=== PATIENT | female | born 1990 | race Caucasian/White ===

== ENCOUNTER 2022-12-23 12:30 | Outpatient (AMB) | payer OTHER, SELFPAY ==
[2022-12-23 14:32] VITALS: BP 100/62; PULSE 64; TEMP 36.4; O2SAT 99; BMI 32.6
--- NOTE | 2022-12-23 14:32 | AM.OFFWIN_ITS ---
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 Pt states since 12/19/22 she has felt dizzy. 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 She states that she had some mild dizziness/vertigo for the last few days or so. No fever or chills, nausea vomiting or diarrhea, headache or ea r pain, ear discharge or difficulty hearing, difficulty swallowing, anorexia, loss of sense of taste or smell, chest pain or shortness of breath, myalgias, or other significant associated symptoms. Review of Systems Const All systems reviewed & are unremarkable except as noted in HPI and below Physical Exam Vital Signs: Last Vital Signs Temp 97.6 F 12/23/22 14:32 Pulse 64 12/23/22 14:32 BP 100/62 12/23/22 14:32 Pulse Ox 99 12/23/22 14:32 Oxygen Delivery Method Room Air 12/23/22 14:32 BMI result Body Mass Index 32.6 Const General: cooperative, healthy appearing, comfortable, no acute distress, alert, awake, Physically active and well groomed; No anxious, diaphoretic, intoxicated appearing, poor hygiene or tired appearing Nutritional Appearance: average body habitus Limitations: no limitations HEENT Head: Yes normal to inspection, Yes normocephalic and Yes atraumatic Ears: hearing grossly normal bilaterally, external ears normal, EAC's normal and TM abnormal (Bilateral) bulging, dull, erythematous, with fluid behind the TM and with loss of landmarks; not obstructed by cerumen and not perforated General nose exam: Normal external nose present, No nasal discharge present, Abnormal mucous membranes and turbinates present, Abnormal nasal septum present and Nasal discharge present Face and sinus: Yes normal facial exam, Yes sinuses nontender and Yes face symmetric Mouth: Normal oral and palatal mucosa present, lip normal and tongue normal Throat: Yes abnormal tonsil (mildly erythematous bilaterally), No peritonsillar mass, No postnasal drainage, No uvular edema and No cobblestoning Eyes General: appearance normal, both eyes and all related structures Neck Neck: Yes normal visual inspection, Yes supple and Yes lymphadenopathy (Mild bilateral submandibular) Resp Effort & Inspection: normal respiratory effort, able to speak in complete sentences, no audible wheezes, no cough, no grunting, not labored, no nasal flaring, no retractions and symmetric chest movement Auscultation: clear to auscultation bilaterally, no crackles, no rales, no rhonchi, no wheezes, lung sounds not diminished and No rub present Cardio Palpation: normal PMI Rate: regular rate Rhythm: regular rhythm Heart sounds: S1 normal heart sound present and S2 normal heart sound present Skin Other: Good color, warm and dry Psych Appearance: grossly normal Mental Status: mental status grossly normal Speech and movement: Normal speech and movement present Affect: normal affect Attitude: cooperative Thought process: Normal thought process present Insight: Good insight present (Psych) Judgement: Good judgement present (Psych) Assessment & Plan Assessment & Plan (1) Otitis media: Code(s): H66.90 - Otitis media, unspecified, unspecified ear Plan Patient with URI, pending respiratory panel to rule out flu COVID and RSV. She has also developed otitis media, right greater than left. She might also have labyrinthitis due to mild vertigo symptoms, however they are brief and she declines meclizine today. She can trial and anti-inflammatories and also wrote her for a course of Augmentin. She should follow up if symptoms persist or worsen Orders: Orders SARS-CoV2/FLU/RSV 12/23/22 R09.89 - Other specified symptoms and signs involving the circulatory and respiratory systems Medications: New amoxicillin-pot clavulanate 875-125 mg 1 tab PO BID 10 tabs 0RF Coding Level of Care Code Est Pt Level 4 (05190) Diagnoses Otitis media H66.90
== END 2022-12-23 15:42 | disposition home or self-care (01) ==
PROVIDERS: Visit Provider Physician Assistant Medical
DX: H66.90 Otitis media, unspecified, unspecified ear (principal)
CPT/HCPCS: 99214

== ENCOUNTER 2022-12-23 14:59 | Outpatient (REF) | payer OTHER, SELFPAY ==
[2022-12-23 19:22] LABS: Influenza A PCR NEGATIVE (Negative); Influenza B PCR NEGATIVE (Negative); Resp Syncy Virus RNA Qual PCR NEGATIVE (Negative); SARS COV2 PCR INHOUSE NEGATIVE (Negative)
== END 2022-12-23 15:00 | disposition home or self-care (01) ==
LOC: HO.LAB 14:59
PROVIDERS: Visit Provider Physician Assistant Medical
DX: Z20.822 Contact with and (suspected) exposure to COVID-19 (principal); R09.89 Other specified symptoms and signs involving the circulatory and respiratory systems
CPT/HCPCS: 0241U